=== PATIENT | male | born 1980 | race Caucasian/White ===

== ENCOUNTER 2016-03-25 16:51 | Emergency (ER) | payer OTHER ==
--- NOTE | 2016-03-25 17:45 | ED.PDOC ---
History of Present Illness - General Chief Complaint: General Stated Complaint: fall Time Seen by Provider: 03/25/16 17:44 Source: patient, RN notes reviewed, Vital Signs reviewed, EMS notes reviewed Exam Limitations: clinical condition, physical impairment - mentally challenged - History of Present Illness Initial Comments: EMS stated patient was picked up at [facility] after patient tried to get up and fell on his left side hitting the metal railings with pain on left side of his chest and abdominal area left.Had history of closed head injury inthe past and was chronically dependent on ventilator but was able to be weaned of from it.Also with contracture deformities both lower extremities. Timing/Duration: 1-3 hours Severity: moderate Improving Factors: nothing Worsening Factors: nothing Allergies/Adverse Reactions: Allergies Vancomycin Allergy (Unverified 06/03/13 19:59) Review of Systems - Review of Systems Unable to Obtain Due To: condition - mentally challenged Past Medical History (General) - Patient Medical History Hx MRSA: Yes - Hand 2014 Hx Other PMH: Yes - Traumatic brain injury MRSA Source:: Wound Surgical History: other - lip surgery Family Medical History - Family History Father Family History: Unknown Physical Exam - Physical Exam General Appearance: Alert, No apparent distress, Well Developed Eye Exam: bilateral normal Ears, Nose, Throat: hearing grossly normal, normal ENT inspection, normal pharynx Neck: non-tender, full range of motion, supple, other - tracheostomy patent Respiratory: no respiratory distress, no accessory muscle use, other - coarse breath sounds with tender chest wall left side Cardiovascular/Chest: normal peripheral pulses, regular rate, rhythm, no edema, no gallop, no JVD, no murmur Peripheral Pulses: radial,right: 2+, radial,left: 2+ Gastrointestinal/Abdominal: normal bowel sounds, no organomegaly, tenderness - mid abdomen no guarding no peritoneal signs, other - PEG intact Back Exam: normal inspection, no CVA tenderness Extremity: other - contracture deformity both lower extremity Skin Exam: normal color, warm/dry, cyanosis Progress - EKG/XRAY/CT CT: abdomen-no acute abnormalities noted Departure - Departure Clinical Impression: Fall from chair or bed, Abdominal pain, left lateral Contusion, abdominal wall Qualifiers: Qualifier Code: (S30.1XXA) Contusion of abdominal wall, initial encounter Time of Disposition: 19:45 Disposition: Discharge to Home or Self Care Condition: Fair Departure Forms: ED Discharge - Pt. Copy, Patient Portal Self Enrollment Referrals: LAWRENCE LEMUS [Primary Care Provider] - 1-2 Weeks Additional Instructions: RETURN TO EMERGENCY ROOM NEEDED
--- NOTE | 2016-03-25 18:29 | CT ---
EXAM DESCRIPTION: CT ABDOMEN WITHOUT IV CONTRAST CLINICAL HISTORY: chest discomfort, abdominal discomfort COMPARISON: None. TECHNIQUE: Transaxial images were obtained without intravenous or oral contrast media. Sagittal and coronal reconstruction was performed. FINDINGS: The lung bases are clear. The liver and spleen are normal. No biliary ductal dilatation is observed. The gallbladder is normal in appearance. No adrenal masses are detected. Imaging of the kidneys reveals no evidence of hydronephrosis mass cyst or calcification. An inferior vena caval filter is observed in place. The pancreas is normal in appearance. A PEG tube is observed in the stomach. No bowel abnormality is detected. Deformity of the right iliac crest is observed from prior fracturing. IMPRESSION: 1. An inferior vena caval filter is observed. 2. A PEG tube is observed in the stomach. Electronically signed by: Heladio Banks MD 03/25/2016 18:26
[2016-03-25 19:03] VITALS: O2SAT 96
[2016-03-25] MEDS ORDERED: HYDROcodone 7.5MG/APAP 325MG 1 EA TAB PO ONE (19:47)
[2016-03-25 20:32] VITALS: BP 130/71; TEMP 97.2
== END 2016-03-25 20:25 | disposition home or self-care (01) ==
LOC: ER 16:51
DX: S30.1XXA Contusion of abdominal wall, initial encounter (principal); F79 Unspecified intellectual disabilities; M24.50 Contracture, unspecified joint; Z88.3 Allergy status to other anti-infective agents; Z86.14 Personal history of Methicillin resistant Staphylococcus aureus infection; Z87.820 Personal history of traumatic brain injury; W17.89XA Other fall from one level to another, initial encounter; Y92.129 Unspecified place in nursing home as the place of occurrence of the external cause

== ENCOUNTER 2016-03-29 10:17 | Emergency (ER) | payer OTHER ==
[2016-03-29] MEDS ORDERED: LIDOCAINE HCL 2% (MOUTH-THROAT) 15 ML UD MT ONE (10:25)
[2016-03-29] MEDS ORDERED: LIDOCAINE 1% 10 ML VIAL INJ ONE (10:40)
[2016-03-29 11:09] VITALS: TEMP 97.9
[2016-03-29] MEDS ORDERED: BACLOFEN 10 MG TAB GT ONE (11:18)
[2016-03-29] MEDS ORDERED: HALOPERIDOL TAB 1 MG TAB GT ONE (11:19)
[2016-03-29] MEDS ORDERED: GABAPENTIN 300 MG CAP GT ONE ×2 (11:20→11:29)
--- NOTE | 2016-03-29 11:20 | ED.PDOC ---
History of Present Illness - General Chief Complaint: General Stated Complaint: pulled out his G-tube Time Seen by Provider: 03/29/16 10:19 Source: patient Exam Limitations: no limitations - History of Present Illness Initial Comments: the patient is a 35-year-old male presenting from the senior living secondary to his G-tube having come out sometime in the last 16 hours. He has no other complaints. He has no injuries. He has a history of a traumatic brain injury which is the reason for his G-tube and his current general status. Patient is alert and in his normal mental status. He has not had his morning medications. intermediate staff tried to replace it but were unable to. Timing/Duration: unsure Severity: mild Improving Factors: nothing Worsening Factors: nothing Allergies/Adverse Reactions: Allergies Vancomycin Allergy (Unverified 06/03/13 19:59) Review of Systems - Review of Systems Constitutional: States: no symptoms reported EENTM: States: no symptoms reported Respiratory: States: no symptoms reported Cardiology: States: no symptoms reported Gastrointestinal/Abdominal: States: no symptoms reported Genitourinary: States: no symptoms reported Musculoskeletal: States: no symptoms reported Skin: States: no symptoms reported Neurological: States: no symptoms reported Endocrine: States: no symptoms reported All other Systems: No Change from Baseline - according to the patient Past Medical History (General) - Patient Medical History Hx Stroke: No - unknown Hx Congestive Heart Failure: No Hx Hypertension: Yes Hx Diabetes: No Hx Gastroesophageal Reflux: Yes Hx MRSA: Yes - Hand 2013 MRSA Source:: Wound - Vaccination History Hx Influenza Vaccination: - unknown Hx Pneumococcal Vaccination: - unknown Family Medical History - Family History Father Family History: Unknown Living Status: Unknown Physical Exam - Physical Exam General Appearance: Alert, Comfortable, No apparent distress Eye Exam: bilateral normal Ears, Nose, Throat: hearing grossly normal, other - very poor dentition. Neck: other - increased muscle tone. He does appear to be able to look both directions. No obvious deformity otherwise. Respiratory: lungs clear, normal breath sounds, no respiratory distress, no accessory muscle use Cardiovascular/Chest: normal peripheral pulses, no edema, other - regular rate Peripheral Pulses: radial,right: 2+, radial,left: 2+ Gastrointestinal/Abdominal: normal bowel sounds, non tender, soft, other - G- tube site is very tight. No spontaneous bleeding. Rectal Exam: deferred Back Exam: normal inspection Extremity: normal range of motion - for the patient, non-tender - ., no pedal edema, no calf tenderness, normal capillary refill Neurologic: alert, normal mood/affect - for this patient, oriented x 3 - he knows he is at the hospital. He knows why he is here. He knows the year. This appears to be his baseline. Skin Exam: normal color Comments: Vital Signs - 24 hr 03/29/16 10:27 Temperature 97.9 F Pulse Rate [ 67 Left Radial] Respiratory 18 Rate Blood Pressure 103/66 [Left Arm] O2 Sat by Pulse 97 Oximetry Progress - Progress Progress: 03/29/16 11:22 the patient is a 35-year-old male with history of traumatic brain injury that presents from the senior living secondary to his G-tube coming out. Initial attempt to replace the G-tube did fail. We had to gauge down to a 14- Vincentian red rubber to find the tract and gradually gauge back up to the 18- Vincentian G-tube. 15 cc of saline were used to inflate the bulb. The patient tolerated this well. Gastric contents were coming from the hole. 150 cc of sterile water was placed without any difficulty or discomfort. the patient was given his morning dose of baclofen, Haldol and Neurontin. He will need the rest of his morning medications when he goes back to the senior living. ER warnings were given. We did use a small amount of viscous lidocaine around the site as well as inject 4 cc of lidocaine without epinephrine around the ostomy to help reduce discomfort with placement. He tolerated this well. He did agree to this prior. Departure - Departure Clinical Impression: Dislodged gastrostomy tube Disposition: Discharge to SNF Condition: Fair Departure Forms: ED Discharge - Pt. Copy, Patient Portal Self Enrollment Diet: regular diet - for him Activity: increase activity as tolerated Referrals: LAWRENCE LEMUS [Primary Care Provider] - 1-2 Weeks Additional Instructions: the patient is a 35-year-old male with history of traumatic brain injury that presents from the senior living secondary to his G-tube coming out. Initial attempt to replace the G-tube did fail. We had to gauge down to a 14- Vincentian red rubber to find the tract and gradually gauge back up to the 18- Vincentian G-tube. 15 cc of saline were used to inflate the bulb. The patient tolerated this well. Gastric contents were coming from the hole. 150 cc of sterile water was placed without any difficulty or discomfort. the patient was given his morning dose of baclofen, Haldol and Neurontin. He will need the rest of his morning medications when he goes back to the senior living. ER warnings were given. We did use a small amount of viscous lidocaine around the site as well as inject 4 cc of lidocaine without epinephrine around the ostomy to help reduce discomfort with placement. He tolerated this well. He did agree to this prior. he was cooperative as well.
[2016-03-29] MEDS ORDERED: GABAPENTIN 100 MG CAP ONE (11:25)
[2016-03-29 11:54] VITALS: BP 92/76; O2SAT 98
== END 2016-03-29 11:48 ==
LOC: ER 10:17
DX: Z43.1 Encounter for attention to gastrostomy (principal); I10 Essential (primary) hypertension; K21.9 Gastro-esophageal reflux disease without esophagitis; Z87.820 Personal history of traumatic brain injury; Z88.3 Allergy status to other anti-infective agents; Z86.14 Personal history of Methicillin resistant Staphylococcus aureus infection; Z79.899 Other long term (current) drug therapy

== ENCOUNTER → 2016-05-07 | Outpatient (CLI) | payer OTHER | LOC: SOLHO 16:55 | PROVIDERS: ATTEND Internal Medicine | DX: N39.0 Urinary tract infection, site not specified (principal) ==